=== PATIENT | female | born 1960 | race Caucasian/White ===

== ENCOUNTER → 2018-03-14 | Outpatient (REF) | payer MEDICARE, MEDICAID ==
[2018-03-14 17:20] LABS: HEMATOCRIT 38.8 % (36.0-47.0); HEMOGLOBIN 11.8 g/dl (12.0-15.5); MEAN CORPUSCULAR HEMOGLOBIN 24.1 pg (27.0-33.0); MEAN CORPUSCULAR HGB CONC 30.4 g/dl (32.0-36.5); MEAN CORPUSCULAR VOLUME 79.2 fl (80.0-96.0); PLATELET COUNT, AUTOMATED 422 10^3/uL (150-450); WHITE BLOOD COUNT 9.6 10^3/uL (4.0-10.0)
[2018-03-14 17:29] LABS: ADD MANUAL DIFFER YES; DIFF SLIDE NUMBER 227; POSITIVE DIFF POS FLAG
[2018-03-14 17:52] LABS: ALBUMIN 4.1 GM/DL (3.2-5.2); ALBUMIN/GLOBULIN RATIO 1.32 (1.00-1.93); ALKALINE PHOSPHATASE 114 U/L (45-117); ALT/SGPT 25 U/L (12-78); ANION GAP 8 MEQ/L (8-16); AST/SGOT 14 U/L (7-37); BILIRUBIN,TOTAL 0.3 MG/DL (0.2-1.0); BLOOD UREA NITROGEN 9 MG/DL (7-18); CALCIUM LEVEL 10.2 MG/DL (8.5-10.1); CARBON DIOXIDE LEVEL 30 MEQ/L (21-32); CHLORIDE LEVEL 102 MEQ/L (98-107); CHOLESTEROL LEVEL 178 MG/DL (<200); CHOLESTEROL RISK RATIO 2.119 (<5); CREATININE FOR GFR 0.63 MG/DL (0.55-1.30); FREE T4 0.73 NG/DL (0.76-1.46); GLOMERULAR FILTRATION RATE > 60.0 (>51); GLUCOSE, FASTING 127 MG/DL (70-100); HDL CHOLESTEROL 84 MG/DL (>40); LDL CHOLESTEROL 74 MG/DL (<100); NON-HDL-C 94 MG/DL; POTASSIUM SERUM 4.3 MEQ/L (3.5-5.1); SODIUM LEVEL 140 MEQ/L (136-145); THYROID STIMULATING HORMONE 0.791 uIU/ML (0.358-3.740); TOTAL PROTEIN 7.2 GM/DL (6.4-8.2); TRIGLYCERIDES LEVEL 99 MG/DL (<150)
[2018-03-14 18:02] LABS: ATYPICAL LYMPH 3 % (0-5); BASOPHILS 2 % (0-4); EOSINOPHILS 3 % (0-5); LYMPHOCYTES 52 % (16-52); MONOCYTES 4 % (0-8); NEUTROPHILS 36 % (35-75); PLATELET ESTIMATE INCREASED (NORMAL)
[2018-03-14 18:04] LABS: ACANTHOCYTES 1+
[2018-03-14 20:01] LABS: ESTIMATED AVERAGE GLUCOSE 177 MG/DL (60-110); HEMOGLOBIN A1c 7.8 %
== END ==
LOC: M SFHCCLAY 10:44
DX: I25.10 Atherosclerotic heart disease of native coronary artery without angina pectoris (principal); J43.9 Emphysema, unspecified; F32.2 Major depressive disorder, single episode, severe without psychotic features; E11.9 Type 2 diabetes mellitus without complications
CPT/HCPCS: 84443

== ENCOUNTER → 2018-03-15 | Outpatient (REF) | payer MEDICARE, MEDICAID ==
[2018-03-15 19:45] LABS: CREATININE, URINE 45.3 MG/DL; MALB URINE SIEMENS < 5.0 MG/L
== END ==
LOC: M SFHCCLAY 19:08
DX: E11.9 Type 2 diabetes mellitus without complications (principal)
CPT/HCPCS: 82043

== ENCOUNTER → 2018-03-23 | Outpatient (REF) | payer MEDICARE, MEDICAID ==
[2018-03-23 15:09] LABS: CREATININE FOR GFR 0.48 MG/DL (0.55-1.30); GLOMERULAR FILTRATION RATE > 60.0 (>51)
[2018-03-23 15:09] LABS: BLOOD UREA NITROGEN 11 MG/DL (7-18)
== END ==
LOC: M LABDRAW1 12:14
DX: M50.221 Other cervical disc displacement at C4-C5 level (principal)
CPT/HCPCS: 82565

== ENCOUNTER → 2018-04-18 | Outpatient (REF) | payer MEDICARE, MEDICAID ==
[2018-04-19 12:54] LABS: T UPTAKE 28 % (30-39); THYROXINE (T4) 7.3 UG/DL (4.5-12.0)
[2018-04-20 12:12] LABS: THYROID PEROXIDASE ANTIBODY 39.8 U/ML (<60.0)
== END ==
LOC: M SFHCCLAY 15:49
DX: E04.1 Nontoxic single thyroid nodule (principal)
CPT/HCPCS: 84443

== ENCOUNTER → 2018-04-25 | Outpatient (REF) | payer MEDICARE, MEDICAID | LOC: M LAB REF 18:26 | DX: L57.0 Actinic keratosis (principal) | CPT/HCPCS: 88305 ==

== ENCOUNTER → 2018-05-08 | Outpatient (CLI) | payer MEDICARE, MEDICAID | LOC: M WHC 12:09 | DX: M81.0 Age-related osteoporosis without current pathological fracture (principal) | CPT/HCPCS: 77080 ==

== ENCOUNTER → 2018-05-09 | Outpatient (CLI) | payer MEDICARE, MEDICAID | LOC: M RAD 10:38 | DX: E04.1 Nontoxic single thyroid nodule (principal); R91.8 Other nonspecific abnormal finding of lung field; R93.89 Abnormal findings on diagnostic imaging of other specified body structures ==

== ENCOUNTER → 2018-05-09 | Outpatient (CLI) | payer MEDICARE, MEDICAID | LOC: M RAD 10:31 | DX: J44.9 Chronic obstructive pulmonary disease, unspecified (principal); E04.1 Nontoxic single thyroid nodule; R91.8 Other nonspecific abnormal finding of lung field; R93.89 Abnormal findings on diagnostic imaging of other specified body structures | CPT/HCPCS: 76536 ==

== ENCOUNTER → 2018-05-30 | Outpatient (CLI) | payer MEDICARE, MEDICAID ==
--- NOTE | 2018-05-30 15:11 | REP ---
Bilateral lower extremity duplex venous ultrasound with reflux evaluation: History: Leg pain and swelling and cramping. Question reflux. Question DVT. Findings: The deep veins are anechoic and fully compressible from the groin to the popliteal fossa in both lower extremities on two-dimensional scanning. Color flow and spectral Doppler interrogation are intact. There is no evidence of DVT on either side. Reflux examination. No deep or superficial system reflux was observed in either lower extremity on standing or with the bed tipped. The greater saphenous vein on the right measures 6.4 mm in AP dimension proximally at the saphenofemoral junction, 4.4 mm at midthigh, and 4.7 mm at the knee. The lesser saphenous vein measures 3.5 mm. The greater saphenous vein on the left measures 6.3 mm in AP dimension proximally, 4.5 mm at midthigh, and 4.8 mm at the knee. The lesser saphenous vein on the left measures 4.7 mm. Impression: No evidence of reflux. No evidence of deep vein thrombosis. Electronically Signed by Manuel Villanueva MD 05/30/2018 08:40 P
== END ==
LOC: M RAD 10:09
PROVIDERS: ATTEND Nurse Practitioner Family
DX: R25.2 Cramp and spasm (principal)